=== PATIENT | female | born 1985 | race Caucasian/White ===

== ENCOUNTER 2021-06-01 11:06 | Emergency (ER) | payer BC, SELFPAY ==
[2021-06-01 11:17] VITALS: BP 119/66; PULSE 76; RESP 16; TEMP 36.7; O2SAT 100
--- NOTE | 2021-06-01 11:54 | ED.NAVMDI ---
HPI - Nausea/Vomiting/Diarrhea General Chief complaint: Abdominal Pain Stated complaint: abdominal pain/nausea/vomiting/diarrhea/fainted Source: patient and RN notes reviewed Mode of arrival: ambulatory Limitations: no limitations History of Present Illness HPI Narrative: Patient is a 35-year-old patient who arrives ambulatory to the [facility] today. Patient states she she woke up this morning; states she felt good for the first hour then vomited and had diarrhea. States that the diarrhea is now clear and watery. Patient states that the diarrhea comes in waves and she has pain to the left lower quadrant with the diarrhea. States she only has pain when she has diarrhea. Patient denies any difficulty with urination. Patient denies any vomiting since this morning. Patient rates her pain as a 0 out of 10 currently. Patient states she did go on a canoe trip this weekend. Denies that anyone else is sick at this time. Patient denies fever denies chills. Patient does states she is still nauseous. MD elicited complaint: nausea and diarrhea Related Data Allergies Allergy/AdvReac Type Severity Reaction Status Date / Time No Known Allergies Allergy Verified 06/01/21 11:33 Review of Systems Review of Systems: CONSTITUTIONAL: Denies body aches, fever, chills, or sweats. EYES: Denies visual changes, redness, or discharge. ENT: Denies rhinorrhea, congestion, sore throat, or otalgia. CARDIOVASCULAR: Denies chest pain, palpitations, or edema. RESPIRATORY: Denies cough or dyspnea. GASTROINTESTINAL: + abdominal pain, nausea, vomiting, and diarrhea. GENITOURINARY: Denies dysuria or hematuria. SKIN: Denies rash, itching, or wounds. MUSCULOSKELETAL: Denies back pain, joint pain, or myalgia. NEUROLOGIC: Denies headache, numbness, tingling, or weakness. PSYCH: Denies depression or anxiety. All systems reviewed & are unremarkable except as noted in HPI and below PMFSH Comments At time of signature, I have reviewed and agree with nursing past medical, surgical, social and family history unless otherwise noted. Please see nursing chart for further information. There is no relevant family history pertinent to the presenting complaint Exam Narrative: GENERAL: Well-appearing, well-nourished, and in no acute distress. HEAD: Normocephalic, atraumatic. EYES: EOMI. No redness or drainage. Conjunctivae normal. ENT: Mucous membranes pink and moist. Nares clear. No rhinorrhea. NECK: Normal AROM. Supple. No lymphadenopathy. CHEST: No respiratory distress. Clear to auscultation. ABDOMEN: Soft, nontender, nondistended, hyperactive bowel sounds; negative for rebound tenderness;negative for pain with palpation to all four quadrants. MUSCULOSKELETAL: No bony tenderness. EXTREMITIES: Normal range of motion. No edema. SKIN: Warm, dry, no rash. Capillary refill normal. Normal skin turgor. NEURO: No focal deficits. Alert and oriented x3. Gait steady. PSYCH: Normal affect. No signs of depression or anxiety. Course Vital Signs Vital signs: Vital Signs Temperature 36.7 C 06/01/21 11:17 Pulse Rate 76 06/01/21 11:17 Respiratory Rate 16 06/01/21 11:17 Blood Pressure 119/66 06/01/21 11:17 Pulse Oximetry 100 06/01/21 11:17 Temperature 36.7 C 06/01/21 11:17 Pulse Rate 76 06/01/21 11:17 Respiratory Rate 16 06/01/21 11:17 Blood Pressure 119/66 06/01/21 11:17 Pulse Oximetry 100 06/01/21 11:17 Reviewed MDM - Nausea/Vomiting/Diarrhea MDM Narrative Medical decision making narrative: Patient has no fever, has clear watery diarrhea, and has no pain with palpation, patient is negative for rebound tenderness Differential Diagnosis Differential diagnosis: Likely traveler's diarrhea, gastroenteritis and dehydration Medical Records Attestation: I reviewed the patient's medical records. Critical Care Time Critical Care Time Critical Care Time: No Discharge Plan Discharge Clinical Impression: Gastroenteritis
== END 2021-06-01 12:07 | disposition home or self-care (01) ==
PROVIDERS: Emergency Provider Nurse Practitioner Family
DX: K52.9 Noninfective gastroenteritis and colitis, unspecified (principal)
CPT/HCPCS: 99203; G0463

== ENCOUNTER 2021-09-04 16:45 | Emergency (ER) | payer BC, SELFPAY ==
--- NOTE | ~2021-09-04 | XR_ITS ---
EXAMINATION: XR chest 2V DATE: 09/04/2021 17:25 INDICATION: Left-sided chest pain TECHNIQUE: PA and lateral views of the chest are obtained. COMPARISON: None available FINDINGS: The lungs are free of acute opacities. There is no pleural effusion or pneumothorax. The ca rdiomediastinal silhouette is normal. The visualized bones and soft tissues are unremarkable. IMPRESSION: 1. No acute cardiopulmonary abnormality. Reviewed, dictated and finalized at location [facility]. [facility]
--- NOTE | 2021-09-04 16:46 | ECG_ITS ---
Measurements Intervals [place] Rate: 78 P: 41 TX: 165 QRS: 69 QRSD: 75 T: 43 QT: 355 QTc: 406 Interpretive Statements SINUS RHYTHM WITH SINUS ARRHYTHMIA BORDERLINE T WAVE ABNORMALITY- ANTERIOR LEADS BASELINE ARTIFACT- II, III, AVR, AVL, AVF BORDERLINE ECG Electronically Signed On 09-05-2021 14:56:51 [employer] by Kwasi Carrillo D.O.
[2021-09-04 16:50] VITALS: BP 136/89; PULSE 70; RESP 20; TEMP 37; O2SAT 100
[2021-09-04 17:07] LABS: Basophils Absolute Auto 0.1 K/mm3 (0.0-0.1); Basophils Percent Auto 0.6 % (0.2-1.2); Eosinophils Absolute Auto 0.2 K/mm3 (0-0.3); Eosinophils Percent Auto 1.6 % (0-4.4); Hematocrit 40.8 % (37.0-47.0); Hemoglobin 13.6 g/dL (12.0-15.0); Immature Granulocyte Absolute 0.04 K/mm3 (0.00-0.031); Immature Granulocyte Percent A 0.3 % (0-0.5); Lymphocytes Absolute Auto 3.68 K/mm3 (0.9-3.2); Lymphocytes Percent Auto 29.9 % (18.3-44.2); Mean Corpuscular HGB Conc 33.3 g/dl (32-36); Mean Corpuscular Volume 92.9 fl (80-100); Mean Platelet Volume 9.5 fl (7.4-10.4); Monocytes Absolute Auto 0.7 K/mm3 (0.1-0.6); Monocytes Percent Auto 5.8 % (2.6-8.5); Neutrophils Absolute Auto 7.6 K/mm3 (1.3-6.7); Neutrophils Percent Auto 61.8 % (45.5-73.1); Platelet Count Result 398 k/mm3 (150-375); Red Blood Count 4.39 M/mm3 (4.2-5.4); Red Cell Distribution Width 11.9 % (11.5-14.5); White Blood Count 12.3 K/mm3 (4.5-10.0)
[2021-09-04 17:21] LABS: Alanine Aminotransferase 12 U/L (4-35); Albumin Level 4.5 g/dL (3.5-5.1); Alkaline Phosphatase 53 U/L (38-126); Anion Gap 11 mmol/L (8-16); Aspartate Amino Transferase 23 U/L (14-36); Bilirubin,Total 0.3 mg/dL (0.2-1.3); Blood Urea Nitrogen 14 mg/dL (7-17); Calcium 9.5 mg/dL (8.4-10.2); Carbon Dioxide 26 mmol/L (22-30); Chloride 102 mmol/L (98-107); Estimated CRCL calculation 83 ml/min; Estimated Glomerular Filt Rate > 60; Glucose 91 mg/dL (65-110); Lipase 74 U/L (23-300); Potassium 3.8 mmol/L (3.4-5.0); Sodium 139 mmol/L (137-145)
[2021-09-04 17:22] LABS: Prothrombin Time 12.9 Seconds (11.1-14.7)
[2021-09-04 17:23] LABS: Partial Thromboplastin Time 28.6 SECONDS (22.3-36.8)
[2021-09-04 17:32] LABS: Troponin I < 0.012 ng/mL (0.000-0.034)
[2021-09-04 18:21] VITALS: BP 116/69; PULSE 62; RESP 18; O2SAT 99
[2021-09-04] MEDS: BELLADONNA ALK/PHENOB ELIX 10 ML, MAG HYDROX/ALUMINUM HYD/SIMETH 30 ML, LIDOCAINE HCL 2... PO (18:50)
--- NOTE | 2021-09-04 19:24 | ED.GENADULT ---
HPI - General Adult General Chief complaint: Chest Pain Stated complaint: chest pain Time Seen by Provider: 09/04/21 18:30 History of Present Illness HPI narrative: Patient a 36-year-old female who presents the emergency department with chief complaint of chest pain. Patient reports that she was eating [place] food and had a keisha while she just finished her food she had pain that developed in her back that shot into her chest into her left arm. Patient states that starting to improve at this point denied diaphoresis denied shortness of breath. The patient states the pain is worse with inspiration the patient denies vomiting denies epigastric pain. The patient reports has had no prior history of cholecystectomy. Patient reports she has family history of cardiac disease with her mother having cardiac disease in her 40s. The patient denies any other medical condition Related Data Allergies Allergy/AdvReac Type Severity Reaction Status Date / Time No Known Allergies Allergy Verified 06/01/21 11:33 Review of Systems Review of Systems: A 10 system review of systems was completed on the patient and is negative except for what is stated in the HPI. Nursing and ancillary documentation was reviewed. Exam Narrative: GENERAL: Well-appearing, well-nourished, and in no acute distress. HEAD: Normocephalic, atraumatic. EYES: PERRLA and EOMI. ENT: Nares clear, no rhinorrhea or epistaxis. Mucous membranes moist. NECK: Supple. CHEST: Clear to auscultation. No respiratory distress. There is tenderness to palpation of the left sternal border HEART: Regular rate and rhythm. No murmur heard. Normal peripheral pulses. ABDOMEN: Soft, nontender, nondistended, normal active bowel sounds. EXTREMITIES: Normal range of motion. No edema. SKIN: Warm, dry, no rash. NEURO: No focal deficits. Alert and oriented x3. PSYCH: Normal mood and affect. Course Course Emergency Course: EKG shows sinus rhythm rate of [address] elevation or ST depression Vital Signs Vital signs: Vital Signs Temperature 37.0 C 09/04/21 16:50 Pulse Rate 70 09/04/21 16:50 Respiratory Rate 20 09/04/21 16:50 Blood Pressure 136/89 09/04/21 16:50 Pulse Oximetry 100 09/04/21 16:50 Temperature 37.0 C 09/04/21 16:50 Pulse Rate 62 09/04/21 18:21 Respiratory Rate 18 09/04/21 18:21 Blood Pressure 116/69 09/04/21 18:21 Pulse Oximetry 99 09/04/21 18:21 Medical Decision Making Vital Signs Vital Signs: Vital Signs Temperature 37.0 C 09/04/21 16:50 Pulse Rate 70 09/04/21 16:50 Respiratory Rate 20 09/04/21 16:50 Blood Pressure 136/89 09/04/21 16:50 Pulse Oximetry 100 09/04/21 16:50 Temperature 37.0 C 09/04/21 16:50 Pulse Rate 62 09/04/21 18:21 Respiratory Rate 18 09/04/21 18:21 Blood Pressure 116/69 09/04/21 18:21 Pulse Oximetry 99 09/04/21 18:21 Lab Data Result diagrams: 09/04/21 17:02 09/04/21 17:02 Labs: Lab Results 09/04/21 09/04/21 09/04/21 Range/Units 17:02 17:02 17:02 WBC 12.3 H (4.5-10.0) K/mm3 RBC 4.39 (4.2-5.4) M/mm3 Hgb 13.6 (12.0-15.0) g/dL Hct 40.8 (37.0-47.0) % MCV 92.9 (80-100) fl MCH 31.0 (26-34) pg MCHC 33.3 (32-36) g/dl RDW 11.9 (11.5-14.5) % Plt Count 398 H (150-375) k/mm3 MPV 9.5 (7.4-10.4) fl Immature Gran % (Auto) 0.3 (0-0.5) % Neut % (Auto) 61.8 (45.5-73.1) % Lymph % (Auto) 29.9 (18.3-44.2) % [place] % (Auto) 5.8 (2.6-8.5) % Eos % (Auto) 1.6 (0-4.4) % Baso % (Auto) 0.6 (0.2-1.2) % Lymph # (Auto) 3.68 H (0.9-3.2) K/mm3 [place] # (Auto) 0.7 H (0.1-0.6) K/mm3 Eos # (Auto) 0.2 (0-0.3) K/mm3 Baso # (Auto) 0.1 (0.0-0.1) K/mm3 Abs Immat Gran (auto) 0.04 H (0.00-0.031) K/mm3 Absolute Neuts (auto) 7.6 H (1.3-6.7) K/mm3 Absolute Nucleated RBC 0.0 (0.0-0.012) K/mm3 Nucleated RBC % 0.0 (0.0-0.2) % PT 12.9 (11.1-14.7) Seconds INR
[2021-09-04 19:57] VITALS: BP 102/70; PULSE 78; RESP 18; O2SAT 99
== END 2021-09-04 19:58 | disposition home or self-care (01) ==
PROVIDERS: Emergency Medicine; Emergency Provider Emergency Medicine
DX: R07.89 Other chest pain (principal); R94.31 Abnormal electrocardiogram [ECG] [EKG]
CPT/HCPCS: 36415; 71046; 80053; 83690; 84484; 85025; 85610; 85730; 93005; 99284; A9270